=== PATIENT | male | born 1955 ===

== ENCOUNTER 2022-05-13 23:06 | Inpatient (IN) | payer MEDICARE, OTHER ==
[2022-05-13] MEDS ORDERED: Morphine 2 MG/ML SYRINGE IVPUSH ONE (23:35)
[2022-05-13] MEDS ORDERED: Acetaminophen 500 MG Tab PO ONE (23:36)
[2022-05-13] MEDS: Sodium Chloride 0.9% 1,000 ML IV SCH (23:57)
[2022-05-13] MEDS ORDERED: Morphine 2 MG/ML SYRINGE ONE (23:59)
[2022-05-14] MEDS ORDERED: Morphine 2 MG/ML SYRINGE IVPUSH ONE (00:35)
[2022-05-14] MEDS ORDERED: Morphine 2 MG/ML SYRINGE ONE (00:49)
[2022-05-14] MEDS ORDERED: cefTRIAXone 1 GM Vial IVPUSH ONE (01:23)
[2022-05-14] MEDS ORDERED: cefTRIAXone 1 GM Vial ONE (01:44)
[2022-05-14] MEDS ORDERED: ETODOLAC 400 MG PO PRN (03:30)
[2022-05-14] MEDS ORDERED: Magnesium Citrate Solution 296 ML Bottle PO ONE (03:41)
[2022-05-14] MEDS: Sodium Chloride 0.9% 1,000 ML IV SCH (05:07)
[2022-05-14] MEDS ORDERED: Levothyroxine 50 MCG Tab PO SCH (07:00)
[2022-05-14] MEDS ORDERED: Pantoprazole 40 MG Tab.CR PO SCH (07:00)
[2022-05-14] MEDS: Phenytoin 100 MG Cap.ER PO SCH ×2 (07:44→19:49)
[2022-05-14] MEDS: Docusate Sodium 100 MG Cap PO SCH ×3 (07:46→19:50)
[2022-05-14] MEDS ORDERED: Bisacodyl 5 MG Tab PO ONE (07:59)
[2022-05-14] MEDS ORDERED: Morphine 60 MG Tab.ER PO SCH (08:00)
[2022-05-14] MEDS ORDERED: DULoxetine 60 MG Cap PO SCH (08:00)
[2022-05-14] MEDS ORDERED: Sodium Chloride 0.9% 1,000 ML IV SCH (08:00)
[2022-05-14] MEDS ORDERED: Omeprazole 20 MG Cap.CR PO SCH (08:00)
[2022-05-14] MEDS ORDERED: VIT C PO SCH (08:00)
[2022-05-14] MEDS ORDERED: MV MIN PO SCH (08:00)
[2022-05-14] MEDS ORDERED: Aspirin 81 MG Tab.EC PO SCH (08:00)
[2022-05-14] MEDS ORDERED: GLUT PO SCH (08:00)
[2022-05-14] MEDS ORDERED: LYSINE PO SCH (08:00)
[2022-05-14] MEDS ORDERED: [UNRECOGNIZED DRUG - OTHER] PO SCH (08:00)
[2022-05-14] MEDS ORDERED: Morphine 30 MG Tab.ER ONE (08:34)
[2022-05-14] MEDS: Calcium Polycarbophil 625 MG Tab PO SCH ×2 (09:15→19:50)
[2022-05-14] MEDS ORDERED: Potassium Chloride 10 MEQ Tab.ER PO ONE (10:33)
[2022-05-14] MEDS: Cefepime 1 GM in Sodium Chloride 0.9% 50 ML IV SCH ×2 (13:46→22:39)
[2022-05-14] MEDS ORDERED: Morphine 30 MG Tab.ER PO SCH ×2 (17:00→22:00)
[2022-05-14] MEDS ORDERED: Latanoprost 0.005% Ophth Soln 2.5 ML Bottle EYEBOTH SCH (20:00)
[2022-05-14] MEDS ORDERED: cefTRIAXone 1 GM in Sodium Chloride 0.9% 50 ML IV SCH (20:00)
[2022-05-14] MEDS ORDERED: atorvaSTATin 80 MG Tab PO SCH (20:00)
[2022-05-14] MEDS ORDERED: Acetaminophen 500 MG Tab ONE (22:00)
== END 2022-05-14 22:10 | DRG 872 ==
LOC: LB.ED 23:06 → LB.MS 05-14 02:44 → UNDOADMIN 05-14 03:23 → LB.MS 05-14 03:23
PROVIDERS: ADMIT Nurse Practitioner Family; ATTEND Nurse Practitioner Family
DX: A41.9 Sepsis, unspecified organism (principal); R50.9 Fever, unspecified; G89.4 Chronic pain syndrome; S09.8XXA Other specified injuries of head, initial encounter; W19.XXXA Unspecified fall, initial encounter; K59.03 Drug induced constipation; Y92.009 Unspecified place in unspecified non-institutional (private) residence as the place of occurrence of the external cause; I95.9 Hypotension, unspecified; G89.29 Other chronic pain; D72.829 Elevated white blood cell count, unspecified; M54.9 Dorsalgia, unspecified; Z79.82 Long term (current) use of aspirin; Z79.899 Other long term (current) drug therapy; R40.2410 Glasgow coma scale score 13-15, unspecified time; Z20.822 Contact with and (suspected) exposure to COVID-19
CPT/HCPCS: 36415; 70450; 71045; 72125; 73502-LT; 74176; 80053; 81001; 83605; 83690; 83735; 85025; 87040; A0425; A0429; A9270-GY; J0692; J0696; J2270; J3490; J7030; U0002

== ENCOUNTER 2022-12-09 16:18 | Emergency (ER) | payer MEDICARE ==
[2022-12-09] MEDS ORDERED: Heparin Sodium 5,000 Units/ML Vial IVPUSH ONE (16:57)
[2022-12-09] MEDS ORDERED: Aspirin 81 MG Tab.Chew PO ONE (16:57)
[2022-12-09] MEDS ORDERED: Phenytoin 100 MG Cap.ER PO ONE (17:00)
[2022-12-09] MEDS ORDERED: Heparin Sodium/D5W 25,000 UNITS/500 ML BAG IV SCH (17:00)
[2022-12-09 17:09] LABS: PROTHROMBIN TIME 10.7 sec (9.0-11.5); PTT,PARTIAL THROMBOPLSTIN TIME 25.2 SECONDS (24.4-33.2)
[2022-12-09] MEDS ORDERED: Metoprolol Tartrate 25 MG Tab PO ONE (17:41)
[2022-12-09] MEDS ORDERED: atorvaSTATin 40 MG Tab PO ONE (17:42)
[2022-12-09] MEDS ORDERED: Morphine 15 MG Tab.ER PO ONE (18:10)
== END 2022-12-09 19:34 ==
LOC: LB.ED 16:18
DX: I21.4 Non-ST elevation (NSTEMI) myocardial infarction (principal); I48.91 Unspecified atrial fibrillation; E78.00 Pure hypercholesterolemia, unspecified; E05.90 Thyrotoxicosis, unspecified without thyrotoxic crisis or storm; F17.210 Nicotine dependence, cigarettes, uncomplicated; Z88.8 Allergy status to other drugs, medicaments and biological substances; Z79.82 Long term (current) use of aspirin; Z79.899 Other long term (current) drug therapy
CPT/HCPCS: 36415; 84484; 85610; 85730; 96365; 96366; 96375; 99284; A0425; A0429; A9270; J1644